=== PATIENT | female | born 2000 | race Two or more races ===

== ENCOUNTER 2023-11-03 01:56 | Emergency (ER) | payer BC ==
[~2023-11-03] VITALS: Ht 162.6 cm; Wt 141.0 kg
[2023-11-03 02:08] VITALS: BP 125/72; PULSE 82; RESP 17; TEMP 97.8; O2SAT 99
[2023-11-03] MEDS ORDERED: DICYCLOMINE 10 MG/5 ML ORAL SYR PO STA (02:22)
[2023-11-03] MEDS ORDERED: MAGNESIUM/ALUMINUM HYDROXIDE/SIMETHICONE 30ML UDC PO STA (02:22)
[2023-11-03] MEDS ORDERED: ONDANSETRON 4MG ODT PO STA (02:22)
[2023-11-03] MEDS ORDERED: FAMOTIDINE 20MG TABLET PO ONE (02:30)
[2023-11-03 02:36] LABS: BASOPHILS % 1.2 % (0.0-2.0); EOSINOPHILS % 2.2 % (0.0-5.0); HEMATOCRIT. 42.1 % (36.0-48.0); HEMOGLOBIN. 14.2 g/dL (12.0-16.0); LYMPHOCYTES % 30.7 % (20.0-50.0); MEAN CORPUSCULAR HEMOGLOBIN 30.6 pg (28.0-32.0); MEAN CORPUSCULAR HGB CONC 33.8 g/dL (31.0-37.0); MEAN CORPUSCULAR VOLUME 90.5 fL (81.0-99.0); MEAN PLATELET VOLUME 9.1 fl (7.4-10.4); MONOCYTES % 8.4 % (2.0-8.0); NEUTROPHILS % 57.5 % (40.0-76.0); PLATELET 226 x1000/uL (130-400); RED BLOOD CELL COUNT 4.65 mill/uL (4.2-5.4); WHITE BLOOD COUNT 8.2 x1000/uL (4.5-11.0)
[2023-11-03 03:00] LABS: ALANINE AMINOTRANSFERASE 12 IU/L (10-49); ALBUMIN 4.2 g/dL (3.2-4.8); ASPARTATE AMINOTRANSFERASE 16 IU/L (<34); BILIRUBIN TOTAL 0.3 mg/dL (0.1-1.0); CALCIUM 8.8 mg/dL (8.7-10.4); CARBON DIOXIDE 25 mEq/L (21-32); CHLORIDE 109 mEq/L (98-107); CREATININE 0.7 mg/dL (0.6-1.0); GLUCOSE 96 mg/dL (70-105); POTASSIUM 3.8 mEq/L (3.5-5.1); PROTEIN TOTAL 7.4 g/dL (6.0-8.3); SODIUM 140 mEq/L (136-145); UREA NITROGEN BLOOD 16 mg/dL (9-23)
[2023-11-03] MEDS ORDERED: FAMO-135 MT (03:05)
[2023-11-03 03:32] LABS: HCG SCREEN NEGATIVE
[2023-11-03 03:39] LABS: ETHANOL BLOOD < 10 mg/dL (<10)
== END 2023-11-03 04:28 | disposition home or self-care (01) ==
LOC: ER 02:09
DX: K29.70 Gastritis, unspecified, without bleeding (principal)
CPT/HCPCS: 36415; 80053; 80320; 84703; 85025; 99284; G0480